=== PATIENT | male | born 1955 | race Caucasian/White ===

== ENCOUNTER 2022-09-26 06:38 | Day surgery (SDC) | payer OTHER ==
[~2022-09-26] VITALS: Ht 172.7 cm; Wt 88.0 kg
[~2022-09-26 06:38] MED LIST: ALLERGY RELIEF10 MG PO; APRODINE PO; Amlodipine Besyl5 MG PO; Antihistamine25 MG PO; Aspir 8181 MG PO; FLAX PO; GLUCOSAMINE &1 EACH PO; LISHYD2025 PO; Omeprazole20 M1 PO; Percocet 5-3251 EACH PO; Pravastatin Sod20 MG PO; TERA5 PO; TRIAMCINOLONE16.5 GM NS; UBID100 PO; VITAMIN D32000 UNIT PO; [UNRECOGNIZED DRUG - OTHER] PO
--- NOTE | 2022-09-26 07:55 | NUR ---
09/26/22 0755 SHAKIR TYLER VERSED 2MG IV PER DR FAIR PRE EGD
== END 2022-09-26 09:15 | disposition home or self-care (01) ==
LOC: ORSCSDS 06:38
PROVIDERS: Internal Medicine Gastroenterology
PROC: 0DB58ZX Excision of Esophagus, Via Natural or Artificial Opening Endoscopic, Diagnostic (ICD-10-PCS; principal; 2022-09-26 08:00)
PROC: 0D758ZZ Dilation of Esophagus, Via Natural or Artificial Opening Endoscopic (ICD-10-PCS; principal; 2022-09-26 08:00)
DX: R13.10 Dysphagia, unspecified (principal); K22.70 Barrett's esophagus without dysplasia; Z79.82 Long term (current) use of aspirin; Z79.899 Other long term (current) drug therapy
CPT/HCPCS: 88305; 88312; J2250; J2405; J2704; J7120

== ENCOUNTER 2025-01-06 16:46 | Emergency (ER) | payer OTHER ==
[~2025-01-06] VITALS: Ht 170.2 cm; Wt 85.7 kg
[~2025-01-06 16:46] MED LIST changes: +OMEP20ER PO; +POTA10T PO; +SILD50TA PO; +TRAZ50 PO
[2025-01-06 16:54] VITALS: BP 138/96
[2025-01-06] MEDS ORDERED: Diphth,Pertuss(Acell),Tet Vac 0.5 ML VIAL IM ONE (17:05)
[2025-01-06] MEDS ORDERED: RX Prepack 6 Tabs Oxycodone 5mg UD ONE (18:55)
== END 2025-01-06 18:48 | disposition home or self-care (01) ==
LOC: ER 16:46
DX: S61.411A Laceration without foreign body of right hand, initial encounter (principal); I10 Essential (primary) hypertension; Z23 Encounter for immunization; Z88.0 Allergy status to penicillin; Z79.82 Long term (current) use of aspirin; Z79.899 Other long term (current) drug therapy; W27.8XXA Contact with other nonpowered hand tool, initial encounter
CPT/HCPCS: 12002; 73120; 90471; 90715; 99282-25; A9270